=== PATIENT | male | born 1965 | race Caucasian/White ===

== ENCOUNTER 2017-08-14 15:17 | Emergency (ER) | payer MEDICARE ==
[~2017-08-14] VITALS: Ht 175.3 cm; Wt 125.3 kg
[2017-08-14 15:24] VITALS: BP 167/91
[2017-08-14] MEDS ORDERED: IBUPROFEN 200 MG TABLET ONE (16:56)
[2017-08-14] MEDS ORDERED: IBUPROFEN 200 MG TABLET PO ONE (17:00)
== END 2017-08-14 17:18 | disposition home or self-care (01) ==
LOC: ED 16:45
DX: S83.92XA Sprain of unspecified site of left knee, initial encounter (principal); S39.012A Strain of muscle, fascia and tendon of lower back, initial encounter; M19.072 Primary osteoarthritis, left ankle and foot; X50.1XXA Overexertion from prolonged static or awkward postures, initial encounter; Y93.89 Activity, other specified; Y92.89 Other specified places as the place of occurrence of the external cause; Y99.9 Unspecified external cause status; Z88.1 Allergy status to other antibiotic agents
CPT/HCPCS: 72110; 99284